=== PATIENT | male | born 2000 | race Caucasian/White ===

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

== ENCOUNTER 2022-02-28 19:18 | Emergency (ER) | payer OTHER ==
[~2022-02-28] VITALS: Ht 188 cm; Wt 83.9 kg
[~2022-02-28 19:18] MED LIST changes: +Pseudoephedrine30 MG PO
[2022-03-01] MEDS ORDERED: AMOXICILLI250 MG/51 PO (01:06)
== END 2022-03-01 01:18 | disposition home or self-care (01) ==
LOC: ER 19:18
DX: J02.0 Streptococcal pharyngitis (principal); J03.90 Acute tonsillitis, unspecified
CPT/HCPCS: 70491; 87430; 96374; 99284-25; A9270; J1100; J1885; Q9967